=== PATIENT | female | born 2000 | race Caucasian/White ===

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

== ENCOUNTER → 2020-01-17 | Outpatient (CLI) | payer MEDICAID, SELFPAY ==
[2020-01-17 15:43] VITALS: BMI 24.2
[2020-01-17 18:21] LABS: Amphetamine Urine VISTA NEGATIVE (<1000 ng/mL); Barbiturate Urine VISTA NEGATIVE (< 200 ng/mL); Benzodiazepine Urine VISTA NEGATIVE (< 200 ng/mL); Cocaine Urine VISTA NEGATIVE (< 300 ng/mL); Ecstacy Urine VISTA NEGATIVE (< 500 ng/mL); Methadone Urine VISTA NEGATIVE (< 300 ng/mL); PCP Urine VISTA NEGATIVE (< 25 ng/mL); THC Urine VISTA POSITIVE (< 50 ng/mL); Vista UDS pH Range 5
[2020-01-17 21:39] LABS: Chlamydia Trachomatis by PCR POSITIVE (Negative); Neisserai gonorrhoeae by PCR Negative (Negative); Probe Check PASS; Sample Adequacy Control PASS; Specimen Processing Control PASS
== END | disposition home or self-care (01) ==
LOC: LABSPEC 17:24
PROVIDERS: PCP Pediatrics; Visit Provider Obstetrics & Gynecology
DX: O98.819 Other maternal infectious and parasitic diseases complicating pregnancy, unspecified trimester (principal); A74.9 Chlamydial infection, unspecified; Z3A.00 Weeks of gestation of pregnancy not specified
CPT/HCPCS: 80307; 87086; 87491; 87591

== ENCOUNTER 2020-02-10 21:48 | Emergency (ER) | payer MEDICAID, SELFPAY ==
[2020-01-17 15:43] VITALS: BMI 24.2
[2020-02-10 21:50] VITALS: BP 128/78; PULSE 106; RESP 15; TEMP 36.6; O2SAT 98; BMI 26.0
--- NOTE | 2020-02-10 23:53 | ED.VISSUMM ---
- ER Visit Summary Date of Service: 02/10/20 Chief Complaint: Dog bite left jaw. History of Present Illness: The patient is a 19 F currently 18 weeks due to July 12. Her friend's dog bit her in the face about 1 to 2 hours ago. No other injuries. Tetanus shot within the last 5 years. No other complaints. Physical Examination: Well-appearing young female vital signs are stable afebrile. H EENT exam pupils round reactive light. She has a linear superficial laceration along the line of her left jaw. Is probably 3 inches in length. There is also some abrasions at the angle of the jaw. Nothing needs to be sewn but the wound does gape even though superficial it will be well cleaned Dermabond and closed. Neck nontender no lymphadenopathy. Lungs are clear. Heart regular rhythm no murmur. Abdomen soft nontender. Patient is moving all 4 extremities. No edema. Neurologically she is awake and alert. Test Results: None Emergency Department Course and Treatment: Clean left cheek and jaw. Dermabond closure. Discharged. Treatment Plan: Wound care. Disposition: Discharge Impression: Dog bite left jaw with Dermabond repair approximately 3 inches or 7 cm. at 15 weeks This note was generated with [employer] dictation software. It may contain incorrect words, spelling, and punctuation that were not noted in review of the chart prior to signing ED Disposition - Plan for ED Patient: Referrals: Ambika Rae MD [Primary Care Provider] -
--- NOTE | 2020-02-10 23:55 | ED.DEP ---
ED Disposition - Plan for ED Patient: Disposition: Home or Assisted Living Instructions: Dog Bite Referrals: Ambika Rae MD [Primary Care Provider] - As Needed Additional Instructions: Watch for any signs of infection such as redness, pus, fever or swelling. Tylenol for pain. Ice to the area for swelling.
== END 2020-02-11 00:14 | disposition home or self-care (01) ==
LOC: ED 02-11 00:14
PROVIDERS: Emergency Provider Emergency Medicine; PCP Pediatrics
DX: O9A.212 Injury, poisoning and certain other consequences of external causes complicating pregnancy, second trimester (principal); S00.87XA Other superficial bite of other part of head, initial encounter; Z3A.15 15 weeks gestation of pregnancy; W54.0XXA Bitten by dog, initial encounter; Y93.9 Activity, unspecified; Y92.9 Unspecified place or not applicable
CPT/HCPCS: 12014; 99282

== ENCOUNTER → 2020-03-05 07:54 | Outpatient (CLI) | payer MEDICAID, SELFPAY ==
[2020-02-15 11:23] VITALS: BMI 26.0
--- NOTE | 2020-03-05 07:55 | US_ITS ---
STUDY: SECOND AND THIRD TRIMESTER OBSTETRICAL ULTRASOUND REASON FOR EXAM: Female, 19 years old anatomy LMP: October 06, 2019. TECHNIQUE: Transabdominal TECHNICAL QUALITY: Adequate. PRIOR ULTRASOUND: None. FINDINGS: There is a single intrauterine fetus. The fetus is in a transverse lie with the head on the maternal right side. There is demonstrated cardiac activity with a heart rate of 150 bpm. There is a normal amniotic fluid volume. The largest amniotic fluid pocket measures 5.2 cm x 3.4 cm. The amniotic fluid index (AWILDA) is within normal limits. The placenta is anterior in location and is not low lying. There are Grade 0 placental changes. The cervix measures 4 cm in length. The bilateral adnexal regions are normal. BIOMETRY: BPD: 5.02 cm: 21 weeks, 1 days HC: 18.82 cm: 21 weeks, 0 days AC: 16.67 cm: 21 weeks, 4 days FL: 3.34 cm: 20 weeks, 3 days CI: 77.6% FL/BPD: 66.5% FL/HC: FL/AC: 20% HC/AC: 1.13 age by current US: 21 weeks, 0 days. RIGOBERTO by current US: July 16, 2020. Estimated weight: 402 grams, +/- 59 grams, 24 %. Age by LMP: 21 weeks, 4 days. RIGOBERTO by LMP: July 12, 2020. ANATOMY: Gender: Male Cranium: Normal lateral ventricles. Normal choroid plexus. Normal cerebellum. Normal cisterna magna. Normal face, nose and lips. Chest: Normal 4-chamber heart. Abdomen/Pelvis: Normal diaphragm. Normal stomach. Normal abdominal wall. Normal cord insertion. Normal 3 vessel cord. The left renal pelvis measures upper limits of normal at 5 mm. Normal bladder. Spine: Normal cervical spine. Normal thoracic spine. Normal lumbar spine. Normal sacrum. Extremities: Normal bilateral upper extremities. Normal bilateral lower extremities. US/OB Anatomy Scan IMPRESSION: Single live uterine gestation with a mean gestational age of 21 weeks. Electronically Signed: Juanito Hayes, at 10:58 EDT , Service support ,
== END ==
PROVIDERS: PCP Pediatrics; Referring Provider Obstetrics & Gynecology; Visit Provider Obstetrics & Gynecology
DX: Z34.90 Encounter for supervision of normal pregnancy, unspecified, unspecified trimester (principal)
CPT/HCPCS: 76805

== ENCOUNTER → 2020-03-12 | Outpatient (CLI) | payer MEDICAID, SELFPAY ==
[2020-03-12 11:11] VITALS: BMI 26.0
[2020-03-12 16:32] LABS: Amphetamine Urine VISTA NEGATIVE (<1000 ng/mL); Barbiturate Urine VISTA NEGATIVE (< 200 ng/mL); Benzodiazepine Urine VISTA NEGATIVE (< 200 ng/mL); Cocaine Urine VISTA NEGATIVE (< 300 ng/mL); Ecstacy Urine VISTA NEGATIVE (< 500 ng/mL); Methadone Urine VISTA NEGATIVE (< 300 ng/mL); PCP Urine VISTA NEGATIVE (< 25 ng/mL); THC Urine VISTA NEGATIVE (< 50 ng/mL); Vista UDS pH Range 6
[2020-03-12 17:24] LABS: Chlamydia Trachomatis by PCR Negative (Negative); Neisserai gonorrhoeae by PCR Negative (Negative); Probe Check PASS; Sample Adequacy Control PASS; Specimen Processing Control PASS
== END | disposition home or self-care (01) ==
LOC: LABSPEC 14:55
PROVIDERS: PCP Pediatrics; Visit Provider Nurse Practitioner Women's Health
DX: O98.819 Other maternal infectious and parasitic diseases complicating pregnancy, unspecified trimester (principal); A74.9 Chlamydial infection, unspecified; O99.320 Drug use complicating pregnancy, unspecified trimester; F12.90 Cannabis use, unspecified, uncomplicated; Z3A.00 Weeks of gestation of pregnancy not specified
CPT/HCPCS: 80307; 87491; 87591

== ENCOUNTER → 2020-04-11 11:45 | Outpatient (CLI) | payer MEDICAID, SELFPAY ==
[2020-04-11 11:22] VITALS: BMI 26.0
[2020-04-11 12:59] LABS: Absolute Neutrophil Count 7.5 X10^3/uL (2.0-7.7); Basophil# 0.01 X10^3/uL; Basophil% 0.1 % (0-1); Eosinophil# 0.07 X10^3/uL; Eosinophils% 0.7 % (0-5); Hematocrit 32.9 % (37-47); Hemoglobin 10.6 g/dL (12.0-15.0); Lymphocyte % 14.1 % (19-41); Mean Corp Hgb Conc 32.2 g/dL (32-36); Mean Corpuscular Hgb 27.5 pg (27.0-32.0); Mean Corpuscular Volume 85.2 fL (81-99); Mean Platelet Vol. 11.9 fl (6.2-12.0); Monocyte% 9.1 % (0-10); NRBC Flagged by Analyzer 0 % (0-5); Neutrophil # 7.48 X10^3/uL (2.7-7.7); Neutrophil % 75.2 % (47-70); Platelet Count 177 K/mm3 (150-450); RBC Distribution Width CV 13.1 % (11.6-14.6); RBC Distribution Width SD 40.3 fl (35.1-43.9); Red Blood Count 3.86 M/mm3 (4.2-5.4); White Blood Count 9.9 K/mm3 (4.4-11.0)
[2020-04-11 13:58] LABS: Glucose Challenge Gest 1H 50g 117 mg/dL (70-140)
== END ==
PROVIDERS: PCP Pediatrics; Referring Provider Obstetrics & Gynecology; Visit Provider Obstetrics & Gynecology
DX: Z34.92 Encounter for supervision of normal pregnancy, unspecified, second trimester (principal); Z3A.26 26 weeks gestation of pregnancy
CPT/HCPCS: 36415; 82950; 85025

== ENCOUNTER → 2020-06-02 16:19 | Outpatient (CLI) | payer MEDICAID, SELFPAY ==
[2020-06-02 16:15] VITALS: BMI 26.0
[2020-06-02 16:56] LABS: Absolute Lymphocyte Count 1.43 X10^3/uL (0.83-4.51); Absolute Neutrophil Count 6.1 X10^3/uL (2.0-7.7); Basophil# 0.01 X10^3/uL; Basophil% 0.1 % (0-1); Eosinophil# 0.07 X10^3/uL; Eosinophils% 0.8 % (0-5); Hematocrit 35.3 % (37-47); Hemoglobin 11.5 g/dL (12.0-15.0); Lymphocyte # 1.43 X10^3/ul (4.0); Lymphocyte % 17.1 % (19-41); Mean Corp Hgb Conc 32.6 g/dL (32-36); Mean Corpuscular Hgb 28.2 pg (27.0-32.0); Mean Corpuscular Volume 86.5 fL (81-99); Mean Platelet Vol. 11.2 fl (6.2-12.0); Monocyte# 0.69 X10^3/uL; Monocyte% 8.3 % (0-10); NRBC Flagged by Analyzer 0 % (0-5); Neutrophil # 6.08 X10^3/uL (2.7-7.7); Platelet Count 153 K/mm3 (150-450); RBC Distribution Width CV 14.3 % (11.6-14.6); RBC Distribution Width SD 44.8 fl (35.1-43.9); Red Blood Count 4.08 M/mm3 (4.2-5.4); White Blood Count 8.3 K/mm3 (4.4-11.0)
[2020-06-02 17:37] LABS: Amphetamine Urine VISTA NEGATIVE (<1000 ng/mL); Barbiturate Urine VISTA NEGATIVE (< 200 ng/mL); Benzodiazepine Urine VISTA NEGATIVE (< 200 ng/mL); Cocaine Urine VISTA NEGATIVE (< 300 ng/mL); Ecstacy Urine VISTA NEGATIVE (< 500 ng/mL); Methadone Urine VISTA NEGATIVE (< 300 ng/mL); PCP Urine VISTA NEGATIVE (< 25 ng/mL); THC Urine VISTA NEGATIVE (< 50 ng/mL); Vista UDS pH Range 7
== END ==
PROVIDERS: Referring Provider Obstetrics & Gynecology; Visit Provider Obstetrics & Gynecology
DX: O99.320 Drug use complicating pregnancy, unspecified trimester (principal); F12.90 Cannabis use, unspecified, uncomplicated; Z3A.00 Weeks of gestation of pregnancy not specified
CPT/HCPCS: 36415; 80307; 85025

== ENCOUNTER → 2020-06-16 10:27 | Outpatient (CLI) | payer MEDICAID, SELFPAY ==
[2020-06-16 10:02] VITALS: BMI 32.1
[2020-06-16 11:30] LABS: HIV - WCH Non-Reactive (Nonreactive)
[2020-06-16 16:44] LABS: Chlamydia Trachomatis by PCR Negative (Negative); Neisserai gonorrhoeae by PCR Negative (Negative); Probe Check PASS; Sample Adequacy Control PASS; Specimen Processing Control PASS
[2020-06-19 02:24] LABS: Rapid Plasmin Reagin (RPR) NONREACTIVE (NONREACTIVE)
== END ==
PROVIDERS: Referring Provider Obstetrics & Gynecology; Visit Provider Obstetrics & Gynecology
DX: O98.819 Other maternal infectious and parasitic diseases complicating pregnancy, unspecified trimester (principal); Z74.9 Problem related to care provider dependency, unspecified; Z3A.00 Weeks of gestation of pregnancy not specified
CPT/HCPCS: 36415; 86592; 86703; 87081; 87491; 87591

== ENCOUNTER → 2020-06-30 | Outpatient (CLI) | payer MEDICAID, SELFPAY ==
[2020-06-30 15:05] VITALS: BMI 26.0
[2020-06-30 18:37] LABS: Amphetamine Urine VISTA NEGATIVE (<1000 ng/mL); Barbiturate Urine VISTA NEGATIVE (< 200 ng/mL); Benzodiazepine Urine VISTA NEGATIVE (< 200 ng/mL); Cocaine Urine VISTA NEGATIVE (< 300 ng/mL); Ecstacy Urine VISTA NEGATIVE (< 500 ng/mL); Methadone Urine VISTA NEGATIVE (< 300 ng/mL); PCP Urine VISTA NEGATIVE (< 25 ng/mL); THC Urine VISTA NEGATIVE (< 50 ng/mL); Vista UDS pH Range 6
== END | disposition home or self-care (01) ==
LOC: LABSPEC 16:45
PROVIDERS: Referring Provider Obstetrics & Gynecology; Visit Provider Obstetrics & Gynecology
DX: F12.90 Cannabis use, unspecified, uncomplicated (principal)
CPT/HCPCS: 80307

== ENCOUNTER → 2020-07-09 18:03 | Outpatient (CLI) | payer MEDICAID, SELFPAY ==
[2020-07-07 10:01] VITALS: BMI 26.0
== END ==
PROVIDERS: PCP Pediatrics; Referring Provider Obstetrics & Gynecology; Visit Provider Obstetrics & Gynecology
DX: Z11.59 Encounter for screening for other viral diseases (principal)
CPT/HCPCS: 87635; 94799; U0003

== ENCOUNTER 2020-07-19 07:06 | Inpatient (IN) | payer MEDICAID, SELFPAY ==
[2020-07-14 10:21] VITALS: BMI 26.0
[2020-07-19] VITALS (48 sets, daily range): BP systolic 16–171; BP diastolic 66–114; PULSE 93–192; TEMP 36.4–37.6; O2SAT 82–100; BMI 31.4
[2020-07-19] MEDS: Lactated Ringers 1,000 ML 50 ML IV ×3 (08:15→17:39)
[2020-07-19 08:39] LABS: Absolute Lymphocyte Count 1.15 X10^3/uL (0.83-4.51); Absolute Neutrophil Count 6.2 X10^3/uL (2.0-7.7); Basophil# 0.01 X10^3/uL; Basophil% 0.1 % (0-1); Eosinophil# 0.05 X10^3/uL; Eosinophils% 0.6 % (0-5); Hematocrit 33.5 % (37-47); Lymphocyte # 1.15 X10^3/ul (4.0); Mean Corp Hgb Conc 32.8 g/dL (32-36); Mean Corpuscular Hgb 26.9 pg (27.0-32.0); Mean Corpuscular Volume 81.9 fL (81-99); Mean Platelet Vol. 11.9 fl (6.2-12.0); Monocyte# 0.77 X10^3/uL; Monocyte% 9.3 % (0-10); NRBC Flagged by Analyzer 0 % (0-5); Neutrophil # 6.22 X10^3/uL (2.7-7.7); Neutrophil % 75.5 % (47-70); Platelet Count 163 K/mm3 (150-450); RBC Distribution Width CV 13.2 % (11.6-14.6); RBC Distribution Width SD 39.7 fl (35.1-43.9); Red Blood Count 4.09 M/mm3 (4.2-5.4); White Blood Count 8.2 K/mm3 (4.4-11.0)
[2020-07-19] MEDS: Oxytocin 30 units/NS 500 ml 30 UNITS/500 ML IV.SOLN IV (09:09)
[2020-07-19] MEDS: Acetaminophen 500 MG Tablet 1000 MG PO (09:59)
[2020-07-19] MEDS: fentaNYL-bupivacaine (epidural) 100 ML BAG EPIDURAL ×2 (17:00→20:35)
[2020-07-19] MEDS: Ondansetron 4 MG/2 ML Vial IV (19:31)
[2020-07-19] MEDS: Lactated Ringers 500 ML 999 ML IV (20:58)
[2020-07-19] MEDS: proCHLORPERazine 10 MG/2 ML Vial IV (21:25)
[2020-07-19] MEDS: Lactated Ringers 1,000 ML 200 ML IV (22:20)
[2020-07-20] VITALS (25 sets, daily range): BP systolic 107–151; BP diastolic 53–105; PULSE 96–131; RESP 14–18; TEMP 36.6–37.3; O2SAT 97–99
[2020-07-20] MEDS: fentaNYL-bupivacaine (epidural) 100 ML BAG EPIDURAL ×2 (00:59→06:22)
[2020-07-20] MEDS: Ondansetron 4 MG/2 ML Vial IV (02:03)
[2020-07-20] MEDS: Lactated Ringers 1,000 ML 200 ML IV ×2 (02:55→07:25)
[2020-07-20] MEDS: Lactated Ringers 500 ML 999 ML IV (07:24)
--- NOTE | 2020-07-20 07:25 | HP.PCM_ITS ---
- Problem List (1) Chlamydia infection affecting Status: Acute Qualifiers: Comment: treated. JANELL neg on 03/11,neg at 36 weeks and neg RPR and HIV (2) Marijuana use Status: Acute Comment: Negative on 03/11. neg 07/01. plan random tox. (3) Status: Acute Qualifiers: Comment: NIPT low risk, Carrier neg for . ntd screening declined. Anatomy US normal (4) Supervision of high-risk Status: Acute Comment: PRR RIGOBERTO 07/12/20 boy Francoise FOB Van (5) UTI in Status: Acute Qualifiers: Comment: treated. repeat Negative on 01/17 History and Physical Date of Admission: 07/19/20 Intake Vital Signs 07/14/20 Height 4 ft 11 in 07/14/20 Weight: 160 lb 07/14/20 BMI 32.3 07/14/20 BP 122/86 H Intake Visit Reasons: 39WK OB Chief Complaint: est ob Horseback Riding Instructor Required: No Is patient in pain?: No Allergies No Known Allergies Allergy (Verified 07/14/20 10:21) Medications Pnv No.95/Ferrous Fum/Folic AC [ Formula] 1 ea PO DAILY #30 tab 12/17/19 [Rx Confirmed 07/14/20] Last Menstral Period: 10/06/19 Zika: Zika virus screening: Negative : No PFSH PFSH Family History Grandmother Hypertension Grandmother Cancer Social History (Updated 07/14/20 @ 15:[address] Kenia Youssef MD) adopted: No household members: family housing: house current occupational status: unemployed current occupational exposures/hazards: No pets and animals: Yes history of recent travel: No Smoking Status: Former smoker second hand exposure: No alcohol intake: current details: not while substance use type: marijuana seatbelt use: always do you feel safe at home: Yes additional social history: Single Pregancy History 1 Elective abortions Hx Para Spontaneous abortions Hx # Term Pregnancies Ectopic pregnancies Hx # Pregnancies Multiple births # of living children HPI 39WK OB: Details: EDVIN PAIGE is a 20 year old at 41 weeks presents for induction of labor secondary to postdates. OB Visit RIGOBERTO Calculator Estimated Delivery Date Method Current WG Current Estimate 07/12/20 LMP (Certain) 40w 2d Expected Delivery Route/Plan Labor Preferences- labor support person: Van pain management options preferred: epidural cut cord/dad catch: yes : yes PP control planned: undecided discussed possible routes of delivery and associated risks: discussed possible delivery modalities and possible indications for each including R/B/A of , VAVD, and CS. questions answered. special requests: none Specific Issue/Plans flu vaccine: given tdap vaccine: declined rhogam: na LARC form signed: declined movement and labor precautions reviewed. Problem list reviewed and updated with the most current plan of care details and appropriate orders placed. Relevant counseling for the gestational age provided. Continue routine care and follow up unless otherwise noted in visit notes/problem list details Initial Weight: 122 lb Date EGA Weight BP Urine Prot Glucose FHR FuHt Pres Dilation Effaced St Visit Note 01/17/20 14w 5d 122 lb (+0 oz) 116/74 150 SM- no vb cramping 02/15/20 18w 6d 128 lb (+6 lb) 102/78 Negative Negative 145 SM- no vb cramping 03/12/20 22w 4d 137 lb 4 oz (+15 lb 4 oz) 128/66 Negative Negative 151 MH-NO Vb, LOF. Good FM. Reviewed anatomy US boy 04/11/20 26w 6d 145 lb (+23 lb) 120/66 Negative Negative 145 26 SM- no vb lof good fm n oregular ctx cbc gct tdap 05/16/20 31w 6d 156 lb (+34 lb) 112/60 Negative Negative 145 32 Cephalic SM- no vb lof good fm no regular ctx larc signed 06/02/20 34w 2d 158 lb 6 oz (+36 lb 6 oz) 140/82 Negative Negative 155 35 Cephalic SM- no vb lof good fm no regualr ctx 06/16/20 36w 2d 159 lb (+37 lb) 126/82 Negative Negative 150 36 Cephalic SM- no vb lof good fm no regular ctx gbs today 06/23/20 37w 2d 161 lb (+39 lb) 116/82 140 37 Cephalic SM- no vb lof good fm no regular ctx,. 06/30/20 38w 2d 162 lb (+40 lb) 118/84 Negative Negative 135 38 Cephalic 1 SM- no vb lof good fm no regular ctx 07/07/20 39w 2d 162 lb (+40 lb) 120/84 135 39 Cephalic SM- no vb lof good fm no regular ctx 07/14/20 40w 2d 160 lb (+38 lb) 122/86 Negative Negative 130 40 Cephalic 3 70 -1 SM- no vb lof good fm no regular ctx ACOG First Trimester First Trimester: Desire for , Alcohol, Tobacco Cessation, Illicit/Recreational Drug/Substance Use, Intimate Partner Violence, Barriers to care, Unstable Housing, Communication Barriers, Environmental/Work Hazards, Anticipated Course of Care, Toxoplasmosis Precations, Use of Any medications, Sexual activity, Exercise, Dental Care, Sauna/Hot tub use, Seat Belt use, Childbirth classes/Hospital facilities, , Travel, Indications for US and Screening for Aneuploidy Second Trimester Second Trimester: Signs and Symptoms of Labor, Selecting a care provider, Reproductive Life Planning and Depression/Anxiety Third Trimester Third Trimester: Pain Management Plans, Labor support person(s), Immediate Larc, Movement Monitoring and Feeding Yes ; discussed Trial of Labor after Counseling or discussed Circumcision preference Diagnostics Diagnostics Diagnostics Glucose 1 Hr 50 gm 117 mg/dL (70-140) 04/11/20 HIV 1&2 Antibody Non-Reactive (Nonreactive) 06/16/20 Hgb 11.5 g/dL (12.0-15.0) L 06/02/20 Hct 35.3 % (37-47) L 06/02/20 RPR NONREACTIVE (NONREACTIVE) 06/16/20 Details: HIV: Urine Culture: Sequential Screen: NIPT Screen: ROS Const Reports system reviewed and no additional complaints, except as docu Card Reports system reviewed and no additional complaints, except as docu Resp Reports system reviewed and no additional complaints, except as docu GI Reports system reviewed and no additional complaints, except as docu, Reports nausea Reports system reviewed and no additional complaints, except as docu Musc Reports system reviewed and no additional complaints, except as docu Exam Const General: cooperative, healthy appearing, comfortable, anxious HENMT Head: normal to inspection Nose: external nose normal Face and sinus: normal facial exam Neck Neck: normal visual inspection, full ROM, no lymphadenopathy Thyroid: thyroid normal Chest Chest palpation & inspection: normal inspection of the chest Resp Effort & Inspection: normal respiratory effort GI Inspection: normal to inspection Palpation: soft, other (gravid uterus) Other: vertex and appropriate size for gestational age Other: Cervical Exam: Extrem General: pedal edema Results POC Urinalysis 2 Dip (Clinic) Office Urine Glucose Negative Last Edit by Vivien Corey on 07/14/20 10:2 5 Office Urine Protein Negative Last Edit by Vivien Corey on 07/14/20 10:2 5 Assessment & Plan Problems 1. UTI in O23.40 treated. repeat Negative on 01/17 2. Z34.90 NIPT low risk, Carrier neg for . ntd screening declined. Anatomy US normal 3. Marijuana use F12.90 Negative on 03/11. neg 07/01. plan random tox. 4. Chlamydia infection affecting O98.819; A74.9 treated. JANELL neg on 03/11,neg at 36 weeks and neg RPR and HIV 5. Supervision of high-risk O09.90 PRR RIGOBERTO 07/12/20 boy Francoise FOB Van Plan Patient presents IOL, plan management for with pitocin/AROM. Pain management: plans epidural. GBS negative. Management of any complications: none I have reviewed the [facility] and made any clinically relevant updates. Orders Orders: POC Urinalysis 2 Dip (Clinic) Today Coding Level of Care Code Off vis,est,level 3 Diagnoses UTI in O23.40 Z34.90 Marijuana use F12.90 Chlamydia infection affecting O98.819; A74.9 Supervision of high-risk O0990
--- NOTE | 2020-07-20 07:27 | PCM.OPRPT ---
Problem List (1) Chlamydia infection affecting Status: Acute Qualifiers: Comment: treated. JANELL neg on 03/11,neg at 36 weeks and neg RPR and HIV (2) Marijuana use Status: Acute Comment: Negative on 03/11. neg 07/01. plan random tox. (3) Status: Acute Qualifiers: Comment: NIPT low risk, Carrier neg for . ntd screening declined. Anatomy US normal (4) Supervision of high-risk Status: Acute Comment: PRR RIGOBERTO 07/12/20 boy Francoise FOB Van (5) UTI in Status: Acute Qualifiers: Comment: treated. repeat Negative on 01/17 (6) Atony of uterus without hemorrhage Status: Acute Vaginal Delivery Maternal Presentation: Medically Indicated Induction iol postdates Method of Induction: Pitocin Amniotic Membrane Rupture Type: Artificial Amniotic Fluid Description: Clear Final RIGOBERTO: 07/12/20 Gestational age: 41 Weeks and 2 Days Date of Procedure: 07/20/20 Pre-Operative Diagnosis: iol postdates Post-Operative Diagnosis: same Surgery/ Procedure Performed: Spontaneous Vaginal Delivery Type of Anesthesia: Epidural Description of Procedure: Patient began pushing and delivered the head in the [PATRICIA] presentation. The head was delivered atraumatically [and a loose nuchal cord ?1 was identified and easily reduced over the 's head]. The anterior and posterior shoulders delivered without complication followed by the rest of the infant and the infant was placed on the maternal abdomen. Delayed cord clamping was employed for approximately 60 seconds. Cord was clamped and cut and gentle traction was applied to the cord and the placenta delivered spontaneously immediately following it was noted to be intact with three-vessel cord. The perineum and vagina were inspected and noted to have a second-degree perineal laceration that was repaired in the usual fashion with 3-0 Vicryl Rapide. Some uterine atony was initially noted and treated with Methergine, Hemabate, and bimanual massage and Pitocin. Discussed with nursing watching EBL over the next 24 hours and if over thousand cc total recommend follow-up CBC.. EBL was 700 cc. Patient and infant tolerated delivery well. Placenta Disposition: [facility] Cord Vessel Description: 3 Vessels Cord Entanglement: Around neck x 1, loose Estimated Blood Loss: 700 A gender: Male Episiotomy Description: None Laceration: Perineal Extension/lac, 2nd degree Medications given after delivery: IV Pitocin Complications: None Multi Select Codes - Urinary/Genital Urinary/Genital CPT Codes: 36153 Vaginal Delivery+ Care([facility])
[2020-07-20] MEDS: Oxytocin 30 units/NS 500 ml 30 UNITS/500 ML IV.SOLN 334 UNITS IV (08:55)
[2020-07-20] MEDS: Methylergonovine 0.2 MG/ML Ampul IM (08:57)
[2020-07-20] MEDS: Carboprost Tromethamine 250 MCG/ML Ampul IM (09:05)
[2020-07-20] MEDS: Naproxen 250 MG Tablet 500 MG PO (20:32)
[2020-07-20] MEDS: Acetaminophen 500 MG Tablet 1000 MG PO (23:49)
[2020-07-21 04:17] VITALS: BP 99/56; PULSE 99; RESP 14; TEMP 36
[2020-07-21 09:00] VITALS: BP 116/73; PULSE 99; RESP 16; TEMP 36.4
[2020-07-21 09:09] VITALS: BP 116/73; PULSE 99
--- NOTE | 2020-07-21 09:22 | PN.OBGYN_ITS ---
Subjective: Patient doing well without complaints. Tolerating PO. Ambulating and voiding without difficulty. Passing gas. Feeding without difficulty. Denies chest pain, shortness of breath, calf pain/swelling, fevers, chills, lightheadedness. - Physical Exam Vitals/I&O's: Vital Signs Temp Pulse Resp BP Pulse Ox 96.8 F L 99 14 116/73 99 07/21/20 04:17 07/21/20 09:09 07/21/20 04:17 07/21/20 09:09 07/20/20 07:50 Oxygen Delivery Method Room Air Weight: 161 lb Body Mass Index (BMI) 31.4 Intake and Output for Last 24 Hours 07/19/20 07/20/20 07/21/20 23:59 23:59 23:59 Intake Total 2.26 / 2021. 3121.94 / 3121.94 Output Total 200 / 200 450 / 450 Balance 1822.26 / 1822.26 2671.94 / 2671.94 General: Alert, Oriented x3 Current Medications Acetaminophen (Tylenol) 1,000 mg PO Q8H PRN PRN PRN Reason: Pain Score 1-310 Last Admin: 07/20/20 23:49 Dose: 1,000 mg Documented by: Bisacodyl (Dulcolax) 10 mg RECTAL UD PRN PRN Reason: If no BM Dibucaine (Dibucaine) 1 applic TOPICAL TID PRN PRN; Protocol PRN Reason: Discomfort Hydrocortisone (Hytone) 1 applic TOPICAL TID PRN PRN; Protocol PRN Reason: Discomfort Methylergonovine Maleate (Methergine) 0.2 mg IM X1 PRN PRN Reason: Excess bleeding/uterine atony Last Admin: 07/20/20 08:57 Dose: 0.2 mg Documented by: Naproxen (Naprosyn) 500 mg PO Q8H PRN PRN PRN Reason: Pain Score 1-3/10 Last Admin: 07/20/20 20:32 Dose: 500 mg Documented by: Ondansetron HCl (Zofran) 4 mg IV Q4H PRN PRN PRN Reason: Nausea Oxycodone HCl (Oxyir) 5 - 10 mg PO Q4H PRN PRN PRN Reason: Pain Score 4-10/10 Senna/Docusate Sodium (Senokot-S, Cris-Colace) 1 - 2 tablet PO DAILY PRN PRN PRN Reason: Constipation Simethicone (Mylicon) 80 mg PO PCHS PRN PRN Reason: Indigestion/Stomach pain Sodium Chloride () 5 - 15 ml IV UD PRN PRN Reason: SALINE FLUSH Medical Necessity - Tobacco Use Smoking Status: Former smoker Assessment/Plan All Active Problems (Last Reviewed 07/14/20 @ 10:21 by Vivien Corey) Supervision of high-risk (Acute) Chlamydia infection affecting (Acute) Marijuana use (Acute) (Acute) UTI in (Acute) Immune to varicella (Resolved) Iron (Fe) deficiency anemia (Resolved) Tetanus, diphtheria, and acellular pertussis (Tdap) vaccination declined (Ruled- out) s/p PPD # 1 1. routine post delivery care 2. breast feeding- support given 3. rh positive 4. rubella immune
--- NOTE | 2020-07-21 09:23 | DCINST_ITS ---
Discharge Diet: No Restrictions Discharge Activity: Return to Normal Activity, May not drive while taking narcotic pain medications., May Shower May resume sexual activity in: 4-6 weeks Call your doctor if your incision/area has: Continuous Slow Oozing, Sudden Increased Bleeding, Increased Pain/ Swelling, Increased Redness, Foul Smelling Discharge Additional Instructions: If you experience any of the following, contact your healthcare provider. * Bleeding that soaks a pad every hour for 2 hours * Fever 100.4 or higher * Unrelieved incision or abdominal pain * Swelling, redness, discharge or bleeding from your incision or episiotomy site * Your incision begins to separate * Problems urinating (including inability to urinate or burning while urinating). * Visual changes * Severe headache * Flu-like symptoms * Pain or redness in one of both of your breasts * Pain, warmth, tenderness or swelling in your legs, especially the calf area * Frequent nausea and vomiting * Symptoms of depression or anxiety If you experience any of the following, call 911 or go to the nearest Emergency Room. * Chest pain * Problems breathing * Seizure activity * Partial or complete paralysis of a body part, slurred speech, weakness or drooping of the face, or a sudden inability to walk or hold your balance Allergies/Adverse Reactions: Allergies No Known Allergies Allergy (Verified 07/14/20 10:21) Medications to take at Discharge Pnv No.95/Ferrous Fum/Folic AC [ Formula] 1 ea PO DAILY 07/19/20 Please Follow Up With: Kenia oYussef MD - [phone] When: Call to make an appointment with your doctor in 6 weeks. If you had elevated Blood pressure or 4th degree laceration you will need to be seen in 2 weeks. Primary Care Physician: Care Physician,No Primary [Primary Care Provider] - Test Results: Test results from this visit will be discussed in further detail at your follow- up appointment, if applicable.
--- NOTE | 2020-07-21 09:23 | PCM.DCVAG ---
Discharge Diet: No Restrictions Discharge Activity: Return to Normal Activity, May not drive while taking narcotic pain medications., May Shower May resume sexual activity in: 4-6 weeks Call your doctor if your incision/area has: Continuous Slow Oozing, Sudden Increased Bleeding, Increased Pain/ Swelling, Increased Redness, Foul Smelling Discharge Additional Instructions: If you experience any of the following, contact your healthcare provider. Bleeding that soaks a pad every hour for 2 hours Fever 100.4 or higher Unrelieved incision or abdominal pain Swelling, redness, discharge or bleeding from your incision or episiotomy site Your incision begins to separate Problems urinating (including inability to urinate or burning while urinating). Visual changes Severe headache Flu-like symptoms Pain or redness in one of both of your breasts Pain, warmth, tenderness or swelling in your legs, especially the calf area Frequent nausea and vomiting Symptoms of depression or anxiety If you experience any of the following, call 911 or go to the nearest Emergency Room. Chest pain Problems breathing Seizure activity Partial or complete paralysis of a body part, slurred speech, weakness or drooping of the face, or a sudden inability to walk or hold your balance Allergies/Adverse Reactions: Allergies No Known Allergies Allergy (Verified 07/14/20 10:21) Medications to take at Discharge Pnv No.95/Ferrous Fum/Folic AC [ Formula] 1 ea PO DAILY 07/19/20 Please Follow Up With: Kenia Youssef MD - [phone] When: Call to make an appointment with your doctor in 6 weeks. If you had elevated Blood pressure or 4th degree laceration you will need to be seen in 2 weeks. Primary Care Physician: Care Physician,No Primary [Primary Care Provider] - Test Results: Test results from this visit will be discussed in further detail at your follow-up appointment, if applicable.
--- NOTE | 2020-07-21 11:15 | CASEMGMT ---
Social Work Assessment Labor and Delivery Unit Date of Referral: 07/21/2020 Date of Intervention: 07/21/2020 Time of Intervention: 11:15a Reason for Referral: History of THC early on in . History obtained from: MEDICAL RECORD, MOTHER OF BABY (MOB) Household composition: MOB and MOB reports HILARY Carr will be staying for a few weeks. Educational Status: High School Graduate Financial Status: Limited Infant Supplies: MOB reports has all needs met for baby boy, Sourav Carr including car seat, crib, diapers, wipes, clothes Childcare/Caregiver(s): MOB reports will be main caregiver. MOB reports good support from FOB, FOB?s family and MOB?s family Transportation: MOB denies any issues with transportation Programs/Agencies Involved: [facility], [facility] Children Services/Legal Issues: MOB denies any history of children services. MOB denies any legal issues Behavioral Health Issues: Mental Health History: MOB denies any history of mental health. Substance Use History: MOB admits to use of marijuana early in . MOB denies any current use. Drug screens on 03/11 and 07/01 were negative. MOB denies any plan to return to use of marijuana. MOB understands meconium for baby to be tested and report to Children Services will be completed. Depression/Shaken Baby/Safe Sleeping Reviewed and resources provided. ASSESSMENT: Met with MOB and FOB in room. HILARY Carr asleep on the couch during assessment. MOB reports she and JANICE are not currently involved in a romantic relationship. MOB reports she and FOB have been ?off and on? for 1 year. MOB reports Van will return home with MOB and baby upon discharge for a few weeks. MOB denies any history of mental health. MOB admits to marijuana use early in and denies any plan to return to use. MOB bonding well with baby. MOB reports is currently , but baby is a ?lazy? feed. MOB reports may do a combination of breast and bottle feed breast milk. MOB states all needs are met for baby. Updated nursing on this worker?s assessment. Will complete report to Children Services do to use of THC during . PLAN: Home with resources provided. Report to be completed to [facility] regarding use of THC during . No other services requested or indicated. -Maria Ines Nguyễn, COLLECTION CORRESPONDENT, CLIENT SERVICE REPRESENTATIVE
[2020-07-21 14:30] VITALS: BP 113/57; PULSE 102; RESP 16; TEMP 36.7
[2020-07-21 16:01] VITALS: BP 113/57; PULSE 102
--- NOTE | 2020-07-22 13:00 | CASEMGMT ---
SOCIAL WORK Report made to [place] with [facility] Services regarding use of THC early in . Informed baby boy, Jinesis urine was negative and this worker will update once meconium results received. Sis Nguyễn, SLEEVE SEWER, STRIP CATCHER
== END 2020-07-21 16:15 | disposition home or self-care (01) | DRG 560 ==
PROVIDERS: Admitting Provider Obstetrics & Gynecology; Referring Provider Obstetrics & Gynecology; Visit Provider Obstetrics & Gynecology
DX: O48.0 Post-term pregnancy (principal); O70.1 Second degree perineal laceration during delivery; O69.81X0 Labor and delivery complicated by cord around neck, without compression, not applicable or unspecified; O62.2 Other uterine inertia; O98.82 Other maternal infectious and parasitic diseases complicating childbirth; A74.9 Chlamydial infection, unspecified; O99.324 Drug use complicating childbirth; F12.90 Cannabis use, unspecified, uncomplicated; O99.02 Anemia complicating childbirth; D50.9 Iron deficiency anemia, unspecified; O23.43 Unspecified infection of urinary tract in pregnancy, third trimester; Z87.891 Personal history of nicotine dependence; Z3A.41 41 weeks gestation of pregnancy; Z37.0 Single live birth
CPT/HCPCS: 59025; 59050; 85025; 86850; 86900; 86901; 99218; J7120; G0378; J2405

== ENCOUNTER 2020-07-25 15:56 | Emergency (ER) | payer MEDICAID, SELFPAY ==
[2020-07-19 07:48] VITALS: BMI 31.4
[2020-07-25 15:58] VITALS: BP 139/94; PULSE 108; RESP 18; TEMP 36.4; O2SAT 98; BMI 29.0
--- NOTE | 2020-07-25 16:14 | VDLE_ITS ---
Reason For Study: PAIN RIGHT GSV is normal. CFV is compressible, spontaneous, phasic, competent and demonstrates normal augmentation. FV is compressible, spontaneous, phasic, competent and demonstrates normal augmentation. POP V is compressible, spontaneous, phasic, competent and demonstrates normal augmentation. T/P Trunk is compressible. PTV is compressible. RT PerV is compressible. Procedure Exam performed portable in ED. A preliminary report was called and/or faxed to ED. Interpretation Summary Deep veins of the right lower extremity are patent and compressible segmentally. There is no evidence of right lower extremity deep vein thrombosis. Valvular competence appears intact within the proximal deep venous system on the right . The right great saphenous vein appears patent and compressible segmentally. Ordering Physician: Ja Bhagat Performed By: Heike Rodriguez, RAJ, RVT
--- NOTE | 2020-07-25 16:16 | ED.DCSUM_ITS ---
- ER Visit Summary Date of Service: 07/25/20 Chief Complaint: Right leg swelling History of Present Illness: The patient is a 20 F who presents with right leg pain and swelling that has been getting worse over the past 3 days. Patient had recent vaginal delivery 5 days ago. Patient states her pain and swelling started when she got home. Patient states she has a numb sensation in her right leg. Patient states her swelling is improved with rest. Patient denies any fevers or chills. Patient states she feels slightly short of breath at times. Patient denies any chest pain. Patient denies any nausea or vomiting patient does admit to a mild headache. Patient denies any abdominal pain. Physical Examination: Vital signs are stable. Patient is afebrile. Patient is in no acute distress. Oral mucosa is pink and moist. Neck is supple. Trachea is midline. There is no JVD noted. Heart was regular rate and rhythm. Lungs are clear and equal bilaterally. Abdomen is soft. Bowel sounds are normal. There is no tenderness. There is no rebound or guarding noted. Skin is warm dry. Cranial nerves II through XII are intact. There are no focal motor or sensory deficits noted. Extremities are intact. There is no calf tenderness. There is 2+ edema of the right lower extremity. It is nonpitting. Epidural site is minimally tender. There is no erythema. There is no induration. There is no warmth. There is no sign of any infection. There is good range of motion of the lumbar spine. Test Results: CBC shows a hemoglobin of 8.0 and hematocrit 25.7. Comprehensive metabolic profile was within normal limits. PT with INR and PTT were within normal limits. Urinalysis showed leukocyte esterase of 500 with greater than 100 white blood cells and 2+ bacteria. Venous duplex of the right lower extremity was obtained. There is no evidence of DVT. Emergency Department Course and Treatment: Patient is feeling better on reevaluation. Case was discussed with Dr. Morena Rollins who was covering for Dr. Kenia Youssef. She stated that the anemia may be delusional from the . She recommended to have the patient monitor her blood pressure and will have the patient follow-up in 3 to 5 days. Patient was given a prescription for Keflex. Patient was given her first dose here. Patient understood and was agreeable with the plan. All questions were answered. Disposition: Discharge home Impression: 1. Urinary tract infection 2. Right leg edema 3. Anemia This note was generated with [employer] dictation software. It may contain incorrect words, spelling, and punctuation that were not noted in review of the chart prior to signing ED Disposition - Plan for ED Patient: Disposition: Home or Assisted Living Diagnosis: Urinary tract infection, Edema of right lower leg, Anemia Instructions: ED CYSTITIS Female Adult, ED Peripheral Edema, Unilateral Prescriptions: Cephalexin [Keflex] 500 mg PO Q6 #12 cap Prescription Printed Referrals: Kenia Youssef MD [STAFF PHYSICIAN] - 3-5 Days
[2020-07-25 16:38] LABS: Mucous, Urine 0 SEEN /hpf (<or=2+)
[2020-07-25 16:48] LABS: Color, Urine Yellow (Yellow); Glucose, Dipstick Normal (Normal); Ketone-Dipstick Negative (Negative); Leukocyte Esterase-Dipstick 500 /ul (Negative); Nitrite-Dipstick Negative (Negative); Occult Blood-Urine 250 /ul (Negative); Protein-Dipstick 30 mg/dl (Negative); Urine Bilirubin Dipstick Negative (Negative); Urine Clarity Cloudy (Clear); Urine Urobilinogen 1 mg/dl (Normal)
[2020-07-25 16:51] LABS: Absolute Lymphocyte Count 1.13 X10^3/uL (0.83-4.51); Absolute Neutrophil Count 8.6 X10^3/uL (2.0-7.7); Basophil# 0.03 X10^3/uL; Basophil% 0.3 % (0-1); Eosinophil# 0.15 X10^3/uL; Eosinophils% 1.4 % (0-5); Hematocrit 25.7 % (37-47); Lymphocyte # 1.13 X10^3/ul (4.0); Lymphocyte % 10.3 % (19-41); Mean Corp Hgb Conc 31.1 g/dL (32-36); Mean Corpuscular Volume 83.4 fL (81-99); Mean Platelet Vol. 10.9 fl (6.2-12.0); Monocyte# 0.81 X10^3/uL; Monocyte% 7.4 % (0-10); NRBC Flagged by Analyzer 0.5 % (0-5); Neutrophil # 8.61 X10^3/uL (2.7-7.7); Neutrophil % 78.1 % (47-70); Platelet Count 290 K/mm3 (150-450); RBC Distribution Width CV 13.5 % (11.6-14.6); RBC Distribution Width SD 40.4 fl (35.1-43.9); Red Blood Count 3.08 M/mm3 (4.2-5.4)
[2020-07-25 16:55] LABS: Squamous Epithelial Cells - UA 0-5 SEEN /hpf (5-10)
[2020-07-25 17:04] LABS: ALB/GLOB Ratio 0.7 RATIO (0.9-2.4); AST(SGOT) 20 U/L (15-37); Alanine Aminotransfer ALT/SGPT 35 U/L (13-56); Albumin, Serum 2.4 g/dL (3.2-5.0); Alkaline Phosphatase 157 U/L (45-117); Anion Gap 5 (5-15); BUN 9 mg/dL (7-18); BUN/Creat Ratio 15.2 RATIO (10-20); Calcium,Total 8.8 mg/dL (8.5-10.1); Chloride 110 mmol/L (98-107); Creatinine, Serum 0.59 mg/dL (0.55-1.02); EST Glomerular Filtration Rate 137 mL/min (>60); Est Glom Filt Rate - Afr Amer 166 mL/min (>60); Estimated Creatinine Clearance 109.25 ml/min; Globulin 3.6 g/dL (2.2-4.2); Glucose 76 mg/dL (74-106); Potassium 3.9 mmol/L (3.5-5.1); Red Blood Cells-Urine 10-25 SEEN /hpf (0-5); Sodium Level 143 mmol/L (136-145)
[2020-07-25 17:05] LABS: Bacteria 2+ /hpf (None Seen)
[2020-07-25 17:07] LABS: White Blood Cells >100 SEEN /hpf (0-5)
[2020-07-25 17:08] LABS: Partial Thromboplast Time 34.6 Seconds (24.1-36.2)
[2020-07-25 18:51] VITALS: BP 135/99; PULSE 91; RESP 18; O2SAT 99
[2020-07-25] MEDS: Cephalexin 250 MG Capsule 500 MG PO (18:51)
== END 2020-07-25 18:52 | disposition home or self-care (01) ==
PROVIDERS: Emergency Provider Emergency Medicine
DX: O86.20 Urinary tract infection following delivery, unspecified (principal); O90.81 Anemia of the puerperium; D64.9 Anemia, unspecified; O90.89 Other complications of the puerperium, not elsewhere classified; R60.0 Localized edema; R20.0 Anesthesia of skin
CPT/HCPCS: 80053; 81001; 85025; 85610; 85730; 93971; 99284

== ENCOUNTER 2020-10-03 19:01 | Emergency (ER) | payer MEDICAID, SELFPAY ==
[2020-09-01 09:12] VITALS: BMI 29.0
[2020-10-03 19:01] VITALS: BP 138/88; PULSE 80; RESP 18; TEMP 36.8; O2SAT 100; BMI 26.2
--- NOTE | 2020-10-03 20:28 | ED.VIS.GEN ---
History of Present Illness Chief Complaint: Cough Narrative: Patient presenting secondary to loss of taste and smell. Patient has been asymptomatic otherwise except for having one episode of nausea and vomiting yesterday. 5 days ago she lost her sense of taste and smell. No other associated symptoms such as cough shortness of breath diarrhea. She denies any sick contacts. She is otherwise healthy. Past Medical History - Allergies and Home Meds Allergies/Adverse Reactions: Allergies No Known Allergies Allergy (Verified 09/01/20 09:12) Primary Care Physician: Care Physician,No Primary [Primary Care Provider] - Prior records reviewed: Yes Past Medical History: None Surgical History: noncontributory Smoking Status: Former smoker Alcohol: None Drugs: None Review of Systems All systems negative except as indicated General: Denies: Chills, Fever, Sweats Eyes: Denies: Visual changes - bilaterally, Diplopia ENT: Reports: - - Loss of taste and smell with mild rhinorrhea Cardiovascular: Denies: Chest pain, Palpitations Respiratory: Denies: Dyspnea, Cough, Dyspnea on exertion Gastrointestinal: Reports: Nausea, Vomiting. Denies: Abdominal pain, Diarrhea, Melena, Hematochezia Genitourinary: Denies: Dysuria, Hematuria, Frequency Musculoskeletal: Denies: Back pain, Extremity Pain Skin: Denies: Rash, Wounds Neurological: Denies: Headache, Weakness, Numbness Physical Exam Vital Signs/Narrative: Vital Signs Temp Pulse Resp BP Pulse Ox 10/03/20 19:01 98.3 F 80 18 138/88 H 100 Inital Vital Signs reviewed: Yes General: Well nourished, Well developed, No Acute Distress Head: Normocephalic, Atraumatic Eyes: Perrl, EOMI ENT: Moist mucous membranes, No rhinorrhea Neck: Supple, Nontender Cardiovascular: Regular rate, Regular rhythm, No murmurs Respiratory: No distress, CTA bilaterally, Chest nontender Abdomen: Soft, Nontender, Nondistended, Normal bowel sounds Back: Nontender, Normal Inspection Extremities: Nontender, No edema Skin: Normal color, No rash Neurological: Alert, Oriented x3, Cranial nerves II-XII grossly intact, Normal Strength, Normal Sensation Psychological: Normal affect, Normal Mood Diagnostic/Tx/Re-eval - Medical Decision Making Patient presenting with an isolated loss of taste and smell. She is otherwise nontoxic with stable vitals. Coronavirus testing will be obtained, patient was recommended to quarantine until she receives results. ED Disposition - Plan for ED Patient: Disposition: Home or Assisted Living Diagnosis: Anosmia, Loss of taste Instructions: ED Upper Resp Infec No Abx Tx Referrals: Pooja Hughes [NON-STAFF] - 1 Week if not improving
[2020-10-03 20:47] VITALS: BP 118/69; PULSE 75; RESP 15; O2SAT 99
--- NOTE | 2020-10-03 23:08 | ED.RN ---
DARIEN IN LAB CALLED AND ACCIDENTLY RAN THE COVID TEST IN HOUSE AND PT RESULTS IS POSITIVE.
== END 2020-10-03 20:52 | disposition home or self-care (01) ==
LOC: ED 20:46
PROVIDERS: Emergency Provider Emergency Medicine
DX: U07.1 COVID-19 (principal); R43.0 Anosmia; R43.9 Unspecified disturbances of smell and taste; Z87.891 Personal history of nicotine dependence
CPT/HCPCS: 87635; 99282; U0002

== ENCOUNTER 2024-03-09 10:00 | Outpatient (CLI) | payer MEDICAID, SELFPAY ==
[2024-03-09 10:20] VITALS: BP 124/72; PULSE 69; RESP 16; TEMP 36.2
[2024-03-09] MEDS: Dextrose 5%-Lactated Ringers 1,000 ML 999 ML IV (10:32)
[2024-03-09] MEDS: Ondansetron 4 MG/2 ML Vial IV (10:34)
[2024-03-09 11:46] VITALS: BP 111/56; PULSE 76; RESP 16
[2024-03-09 12:05] LABS: Amphetamine Urine VISTA NEGATIVE (<1000 ng/mL); Barbiturate Urine VISTA NEGATIVE (< 200 ng/mL); Benzodiazepine Urine VISTA NEGATIVE (< 200 ng/mL); Cocaine Urine VISTA NEGATIVE (< 300 ng/mL); Ecstacy Urine VISTA NEGATIVE (< 500 ng/mL); Methadone Urine VISTA NEGATIVE (< 300 ng/mL); PCP Urine VISTA NEGATIVE (< 25 ng/mL); THC Urine VISTA POSITIVE (< 50 ng/mL); Vista UDS pH Range 5
[2024-03-12 00:06] LABS: Chlamydia By Nucleic Acid AMP Negative (Negative); Gonococcus By Nucleic Acid AMP Negative (Negative)
[2024-03-15 15:59] LABS: HPV Reflexed? NOT INDICATED
== END 2024-03-09 10:01 | disposition home or self-care (01) ==
PROVIDERS: Referring Provider Registered Nurse; Visit Provider Registered Nurse
DX: O99.280 Endocrine, nutritional and metabolic diseases complicating pregnancy, unspecified trimester (principal); E86.0 Dehydration; Z3A.00 Weeks of gestation of pregnancy not specified; Z34.90 Encounter for supervision of normal pregnancy, unspecified, unspecified trimester; O09.90 Supervision of high risk pregnancy, unspecified, unspecified trimester; O99.320 Drug use complicating pregnancy, unspecified trimester; F12.99 Cannabis use, unspecified with unspecified cannabis-induced disorder
CPT/HCPCS: 96374; 96361; 80307; 87086; 87491; 87591; 88175; A4216; G0145; J2405

== ENCOUNTER → 2024-03-22 | Outpatient (CLI) | payer MEDICAID, SELFPAY ==
[2024-03-22 15:19] LABS: Absolute Neutrophil Count 5.9 X10^3/uL (2.0-7.7); Basophil# 0.02 X10^3/uL; Basophil% 0.3 % (0-1); Eosinophil# 0.08 X10^3/uL; Hematocrit 36.9 % (37-47); Hemoglobin 12.4 g/dL (12.0-15.0); Lymphocyte % 17.7 % (19-41); Mean Corp Hgb Conc 33.6 g/dL (32-36); Mean Corpuscular Hgb 28.6 pg (27.0-32.0); Mean Corpuscular Volume 85.2 fL (81-99); Mean Platelet Vol. 12.6 fl (6.2-12.0); Monocyte# 0.55 X10^3/uL; Monocyte% 6.9 % (0-10); NRBC Flagged by Analyzer 0 % (0-5); Neutrophil # 5.86 X10^3/uL (2.7-7.7); Neutrophil % 73.8 % (47-70); Platelet Count 170 K/mm3 (150-450); RBC Distribution Width CV 13.9 % (11.6-14.6); RBC Distribution Width SD 43.8 fl (35.1-43.9); Red Blood Count 4.33 M/mm3 (4.2-5.4); White Blood Count 7.9 K/mm3 (4.4-11.0)
[2024-03-22 16:19] LABS: HIV - WCH Non-Reactive (Nonreactive); Hepatitis B Surface Antigen Non-Reactive (Nonreactive); Hepatitis C Antibody Non-Reactive (Nonreactive); Rubella IgG Reactive (Nonreactive); Syphilis Antibodies Non-reactive
[2024-03-24 05:07] LABS: V-Zoster IgG (Immunity) 555 index (Immune >165)
== END | disposition home or self-care (01) ==
LOC: PAVLAB 14:48
PROVIDERS: Referring Provider Registered Nurse; Visit Provider Registered Nurse
DX: Z34.81 Encounter for supervision of other normal pregnancy, first trimester (principal)
CPT/HCPCS: 36415; 85025; 86703; 86762; 86780; 86787; 86803; 86850; 86900; 86901; 87340

== ENCOUNTER 2024-04-05 12:01 | Emergency (ER) | payer MEDICAID, SELFPAY ==
[2024-04-05 12:02] VITALS: BP 118/80; PULSE 82; RESP 14; TEMP 35.7; O2SAT 100
[2024-04-05 12:40] LABS: Bedside Glucose 84 mg/dL (74-106)
--- NOTE | 2024-04-05 12:43 | CT_ITS ---
STUDY: CT BRAIN WITHOUT CONTRAST REASON FOR EXAM: Female, 23 years old. Syncope, head injury (shield abd - 12 wks preg) RADIATION DOSAGE (If Supplied By Facility): CTDIvol = ( 47.06 ) mGy, DLP = ( 872.68 ) mGycm TECHNIQUE: Transaxial CT imaging of the brain was performed without administration of intravenous contrast material. Individualized dose optimization techniques were used for this CT. COMPARISON: No relevant priors. FINDINGS: Normal soft tissue structures. Normal calvarium. Normal size ventricles and extra-axial spaces for the patient''s age. Normal white matter tracts of the cerebral hemispheres. Normal basal ganglia and thalami. Normal brainstem. Normal cerebellum. There is no intracranial hemorrhage. There are no findings of an acute ischemic infarction. Minimal mucosal thickening at the base of the left maxillary sinus. CT/Brain/Head without Contrast IMPRESSION: Normal unenhanced CT scan of the brain. Electronically Signed: Juanito Hayes MD at 13:40 EDT ,
--- NOTE | 2024-04-05 12:45 | EX.ED.DYSGE1 ---
HPI History of Present Illness Chief Complaint: Syncope Informant: patient Onset/Context/Timing Onset: Today Narrative Narrative: Patient presents via EMS secondary to syncopal episode. She is currently 12 weeks . She states that she had a very brief prodromal symptom of lightheadedness and feeling warm and then woke up on the floor. She did report a fall to her right and hit her head on a shelf. She does have a mild headache. BGT was reportedly 62 for EMS. They did give her some oral glucose. She has some mild abdominal cramping. PFSH PFSH Medical History Hx of chlamydia infection Home Medications PNV 153-FA 400 mcg-om3 35 mg-dha 25 mg-epa 5 mg-fish oil chew tablet tab PO DAILY 03/07/24 [History Last Taken Unknown] valacyclovir 500 mg tablet (Valtrex) 500 mg PO DAILY 03/07/24 [History Last Taken Unknown] ondansetron 4 mg disintegrating tablet 4 mg PO Q6H PRN nausea and vomiting #30 tabs 03/27/24 [Rx Last Taken Unknown] Allergy/AdvReac Type Severity Reaction Status Date / Time No Known Allergies Allergy Verified 04/05/24 12:02 Family History Grandmother Hypertension Grandmother Cancer Surgical History Hardy teeth extracted Social History adopted: No household members: family and children housing: house number of children: 1 current occupational status: employed current occupation: [employer] current occupational exposures/hazards: No pets and animals: No history of recent travel: No sexually active: Yes Smoking Status: Never smoker second hand exposure: No alcohol intake: current details: not while substance use type: marijuana well-balanced diet: about half the time caffeine: No eating out: 1-3 times/week during the past year weight has: remained stable what type of physical activity do you participate in: none thad/orthodoxy: None seatbelt use: always do you feel safe at home: Yes additional social history: Single Significant Other- Jordan ROS ROS ED Constitutional Constitutional ED: Denies chills or fever(s) Eyes Eyes: Denies discharge from eye(s) ENT ENT ED: Denies discharge from eye(s), rhinorrhea or sore throat Cardiovascular Cardiovascular: Denies chest pain or palpitations Respiratory/Chest Respiratory/Chest: Denies cough or dyspnea Gastrointestinal Gastrointestinal: Reports abdominal pain; Denies nausea or vomiting Genitourinary Genitourinary ED: Denies difficulty urinating or dysuria Musculoskeletal Musculoskeletal: Denies back pain or extremity pain Integumentary Denies Abrasions or rash Neurologic Neurologic: Reports headache(s); Denies weakness Psychiatric Psychiatric: Denies anxiety or depression Allergic/Immunologic Allergic/Immunologic ED: Denies lip swelling or urticaria EXAM Physical Exam Const Vital Signs: 04/05/24 12:02 04/05/24 13:16 04/05/24 14:06 Temperature 96.3 F L 98.0 F Temperature Source Temporal Oral Pulse Rate 82 74 Respiratory Rate 14 15 Respiratory Effort Normal Respiratory Pattern Normal Blood Pressure 118/80 127/66 H Blood Pressure Mean 92 86 Pulse Ox 100 98 Oxygen Delivery Method Room Air Room Air Positive well nourished and well developed General Appearance ED: well developed HEENT Reports moist mucous membranes Eyes EOMs intact bilaterally Chest Wall inspection of chest normal and palpation of chest normal Resp normal respiratory effort and clear to auscultation bilaterally Cardio regular rate and regular rhythm GI non-tender Palpation: soft Extremity normal to inspection Neuro oriented x3 and no sensory deficits noted Motor Exam: strength 5/5 throughout Psych mental status grossly normal Skin no rashes or lesions noted MDM MDM MDM Narrative Medical decision making narrative: Patient was on research and development scientist. EKG obtained to evaluate for cardiac arrhythmia/ischemia. IV line established. Labwork obtained to evaluate for leukocytosis, anemia, and electrolyte derangement. CT scan of the head will be obtained given her syncopal episode with striking her head and persistent headache. heart tones will be obtained. History & Record Review Discussion w/independent historian: Patient Lab Data Attestation: I reviewed the patient's lab results. Labs: Laboratory Results - last 24 hr 04/05/24 04/05/24 12:10 13:12 WBC 9.6 RBC 4.37 Hgb 12.9 Hct 38.6 MCV 88.3 MCH 29.5 MCHC 33.4 RDW Std Deviation 44.6 H RDW Coeff of Astrid 13.6 Plt Count 162 MPV 12.4 H Immature Gran % (Auto) 0.300 Neut % (Auto) 80.7 H Lymph % (Auto) 12.4 L Willacy % (Auto) 5.4 Eos % (Auto) 0.9 Baso % (Auto) 0.3 Absolute Neuts (auto) 7.7 Absolute Lymphs (auto) 1.19 Nucleated RBC % 0 Sodium 138 Potassium 3.5 Chloride 108 H Carbon Dioxide 26.0 Anion Gap 4 L BUN 8 Creatinine 0.47 L Est GFR (MDRD) Af Amer 208 Est GFR (MDRD) Non-Af 172 BUN/Creatinine Ratio 16.9 Glucose 84 Calcium 10.1 Total Bilirubin 0.30 Direct Bilirubin 0.12 AST 7 L ALT 11 L Alkaline Phosphatase 51 Total Protein 6.5 Albumin 3.2 Globulin 3.3 Urine Color Yellow Urine Clarity Cloudy Urine pH 7.0 Ur Specific [place] 1.015 Urine Protein 30 H Urine Glucose (UA) Normal Urine Ketones Negative Urine Occult Blood 25 H Urine Nitrite Negative Urine Bilirubin Negative Urine Urobilinogen Normal Ur Leukocyte Esterase 100 H Urine RBC 5-10 SEEN Urine WBC 5-10 SEEN Ur Squamous Epith Cells 5-10 SEEN Amorphous Sediment 2+ Urine Bacteria 0 SEEN Urine Mucus 0 SEEN POC Glucose 84 Radiography Diagnostic Testing: Clinical Impression(s) from Imaging Studies Brain CT 04/05/24 12:43 IMPRESSION: Normal unenhanced CT scan of the brain. Electronically Signed: Juanito Hayes MD at 13:40 EDT , EKG Initial EKG: Attestation: I personally reviewed and interpreted this EKG as follows: Interpretation: Sinus Rhythm (Sinus 86 with no acute ischemia.) Treatment and Re-Evaluation :: CBC was normal white count at 9.6 with hemoglobin 12.9. Chemistry studies unremarkable. LFTs normal. Urinalysis reveals no urine ketones. She has 5-10 white cells 5-10 epithelial cells and 2+ amorphous sediment. No bacteria noted. BGT on arrival was 84. She did eat a small meal here but her significant other brought in for her. Her repeat blood sugar is 98. Patient was able to ambulate down the padron to the restroom with no symptoms. I spoke with Dr. Youssef who knows the patient. She does feel patient is safe to be discharged home. Being 12 weeks she does not feel she needs to go for any further monitoring. Patient is to follow-up in the office in the next 1 to 2 weeks. Increase p.o. fluids. Return instructions provided. Discharge Plan Triage Chief Complaint: Syncope ED Provider: Navya Valverde Dx/Rx/DC Orders Clinical Impression: Syncope Instructions: ED Fainting, Uncertain Cause Prescriptions: No Action valacyclovir [Valtrex] 500 mg tablet 500 mg PO DAILY PNV no.[id number] 400 mcg-35 mg- 25 mg-5 mg tablet,chewable PO DAILY ondansetron 4 mg tablet,disintegrating 4 mg PO Q6H PRN (Reason: nausea and vomiting) Qty: 30 0RF Primary Care Provider: Care Physician,No Primary Referrals: Kenia Youssef MD [Med Staff - Active Staff] - 5-7 Days Care Physician,No Primary [Primary Care Provider] - Disposition Disposition: Home, Self Care
[2024-04-05] MEDS: 0.9% Normal Saline (1000mL) 1,000 ML 150 ML IV (13:06)
[2024-04-05 13:25] LABS: Bacteria 0 SEEN /hpf (None Seen); Mucous, Urine 0 SEEN /hpf (<or=2+)
[2024-04-05 13:28] LABS: Absolute Lymphocyte Count 1.19 X10^3/uL (0.83-4.51); Absolute Neutrophil Count 7.7 X10^3/uL (2.0-7.7); Basophil# 0.03 X10^3/uL; Basophil% 0.3 % (0-1); Color, Urine Yellow (Yellow); Eosinophil# 0.09 X10^3/uL; Eosinophils% 0.9 % (0-5); Glucose, Dipstick Normal (Normal); Hematocrit 38.6 % (37-47); Hemoglobin 12.9 g/dL (12.0-15.0); Ketone-Dipstick Negative (Negative); Leukocyte Esterase-Dipstick 100 /ul (Negative); Lymphocyte # 1.19 X10^3/ul (0.83-4.51); Lymphocyte % 12.4 % (19-41); Mean Corp Hgb Conc 33.4 g/dL (32-36); Mean Corpuscular Hgb 29.5 pg (27.0-32.0); Mean Corpuscular Volume 88.3 fL (81-99); Mean Platelet Vol. 12.4 fl (6.2-12.0); Monocyte# 0.52 X10^3/uL; Monocyte% 5.4 % (0-10); NRBC Flagged by Analyzer 0 % (0-5); Neutrophil # 7.72 X10^3/uL (2.7-7.7); Neutrophil % 80.7 % (47-70); Nitrite-Dipstick Negative (Negative); Occult Blood-Urine 25 /ul (Negative); Platelet Count 162 K/mm3 (150-450); Protein-Dipstick 30 mg/dl (Negative); RBC Distribution Width CV 13.6 % (11.6-14.6); RBC Distribution Width SD 44.6 fl (35.1-43.9); Red Blood Count 4.37 M/mm3 (4.2-5.4); Specific Gravity, Urine 1.015 (1.002-1.030); Urine Bilirubin Dipstick Negative (Negative); Urine Urobilinogen Normal (Normal); White Blood Count 9.6 K/mm3 (4.4-11.0)
[2024-04-05 13:38] LABS: Urine Clarity Cloudy (Clear)
[2024-04-05 13:39] LABS: Amorphous Sediment 2+; Red Blood Cells-Urine 5-10 SEEN /hpf (0-5); Squamous Epithelial Cells - UA 5-10 SEEN /hpf (5-10); White Blood Cells 5-10 SEEN /hpf (0-5)
[2024-04-05 13:52] LABS: AST(SGOT) 7 U/L (15-37); Alanine Aminotransfer ALT/SGPT 11 U/L (13-56); Albumin, Serum 3.2 g/dL (3.2-5.0); Alkaline Phosphatase 51 U/L (45-117); Anion Gap 4 (5-15); BUN 8 mg/dL (7-18); BUN/Creat Ratio 16.9 RATIO (10-20); Bilirubin, Direct 0.12 mg/dL (0.00-0.30); Calcium,Total 10.1 mg/dL (8.5-10.1); Chloride 108 mmol/L (98-107); Creatinine, Serum 0.47 mg/dL (0.55-1.02); EST Glomerular Filtration Rate 172 mL/min (>60); Est Glom Filt Rate - Afr Amer 208 mL/min (>60); Globulin 3.3 g/dL (2.2-4.2); Glucose 84 mg/dL (74-106); Potassium 3.5 mmol/L (3.5-5.1); Protein, Total 6.5 g/dL (6.4-8.2); Sodium Level 138 mmol/L (136-145)
[2024-04-05 14:06] VITALS: BP 127/66; PULSE 74; RESP 15; TEMP 36.7; O2SAT 98
[2024-04-05 14:18] LABS: Bedside Glucose 98 mg/dL (74-106)
[2024-04-05 14:28] VITALS: BP 122/78; PULSE 79; RESP 16; TEMP 36.1; O2SAT 99
== END 2024-04-05 14:30 | disposition home or self-care (01) ==
PROVIDERS: Emergency Provider Emergency Medicine; Visit Provider Emergency Medicine
DX: O99.891 Other specified diseases and conditions complicating pregnancy (principal); R55 Syncope and collapse; Z3A.12 12 weeks gestation of pregnancy
CPT/HCPCS: 70450; 80048; 80076; 81001; 82962; 85025; 93005; 96360; 99284; J7030; A4216

== ENCOUNTER → 2024-05-21 | Outpatient (CLI) | payer SELFPAY | END | disposition home or self-care (01) | PROVIDERS: Referring Provider Obstetrics & Gynecology; Visit Provider Obstetrics & Gynecology | DX: R39.15 Urgency of urination (principal) | CPT/HCPCS: 36415; 87086 ==

== ENCOUNTER → 2024-06-20 | Outpatient (CLI) | payer MEDICAID, SELFPAY ==
--- NOTE | 2024-06-20 15:33 | US_ITS ---
HISTORY: Anatomy scan. TECHNIQUE: Transabdominal and transvaginal pelvic ultrasound was performed. 122 images. COMPARISON: None. FINDINGS: INTRAUTERINE GESTATION(s): Single. PRESENTATION: Variable, cephalic presentation at the beginning of the examination and breech position at the end of the examination. HEART MOTION: 143 bpm. PLACENTA: Posterior, grade one. No placenta previa. CERVIX: 4.2 cm long and closed. AMNIOTIC FLUID: Maximum vertical pocket 3.5 cm, within normal limits. biometry- BIPARIETAL DIAMETER: 5.1 cm, corresponding to 21 weeks 3 days. HEAD CIRCUMFERENCE: 19.7 cm, corresponding to 21 weeks 6 days. ABDOMINAL CIRCUMFERENCE: 18 cm, corresponding to 22 weeks 6 days. FEMUR LENGTH: 3.7 cm, corresponding to 21 weeks 6 days. ESTIMATED GESTATIONAL AGE: 22 weeks 0 days. ESTIMATED DUE DATE (RIGOBERTO): 10/24/2024. ESTIMATED WEIGHT: 496 g corresponding to 13th percentile. ANATOMY: Facial profile, orbits, nose/lips, anterior and posterior cranial fossa, spine, bilateral upper and lower extremities, four-chamber heart, three-vessel cord insertion, stomach, kidneys, and bladder visualized. US/OB Anatomy w/ Transvaginal IMPRESSION: Single living intrauterine in variable presentation with an estimated gestational age of 22 weeks 0 days. Unremarkable anatomic survey. Electronically Signed: Adriana Miner MD at 15:30 EDT ,
== END | disposition home or self-care (01) ==
LOC: OPUS 15:22
PROVIDERS: Referring Provider Obstetrics & Gynecology; Visit Provider Obstetrics & Gynecology
DX: O09.90 Supervision of high risk pregnancy, unspecified, unspecified trimester (principal); Z3A.00 Weeks of gestation of pregnancy not specified
CPT/HCPCS: 76805; 76817

== ENCOUNTER → 2024-07-25 | Outpatient (CLI) | payer MEDICAID, SELFPAY ==
[2024-07-25 13:36] LABS: Absolute Neutrophil Count 7.2 X10^3/uL (2.0-7.7); Basophil# 0.03 X10^3/uL; Basophil% 0.3 % (0-1); Eosinophils% 1.1 % (0-5); Hematocrit 32.7 % (37-47); Lymphocyte % 15.8 % (19-41); Mean Corp Hgb Conc 33.6 g/dL (32-36); Mean Corpuscular Hgb 29.9 pg (27.0-32.0); Mean Corpuscular Volume 88.9 fL (81-99); Monocyte# 0.63 X10^3/uL; Monocyte% 6.6 % (0-10); NRBC Flagged by Analyzer 0 % (0-5); Neutrophil # 7.19 X10^3/uL (2.7-7.7); Neutrophil % 75.8 % (47-70); Platelet Count 146 K/mm3 (150-450); RBC Distribution Width CV 12.9 % (11.6-14.6); RBC Distribution Width SD 42.2 fl (35.1-43.9); Red Blood Count 3.68 M/mm3 (4.2-5.4); White Blood Count 9.5 K/mm3 (4.4-11.0)
[2024-07-25 14:11] LABS: Glucose Challenge Gest 1H 50g 116 mg/dL (70-140)
[2024-07-25 14:41] LABS: HIV - WCH Non-Reactive (Nonreactive); Syphilis Antibodies Non-reactive
== END | disposition home or self-care (01) ==
PROVIDERS: Advanced Practice Midwife; Referring Provider Obstetrics & Gynecology; Visit Provider Obstetrics & Gynecology
DX: O09.90 Supervision of high risk pregnancy, unspecified, unspecified trimester (principal); Z3A.23 23 weeks gestation of pregnancy; Z13.1 Encounter for screening for diabetes mellitus
CPT/HCPCS: 36415; 82950; 85025; 86703; 86780

== ENCOUNTER → 2024-09-24 | Outpatient (CLI) | payer MEDICAID, SELFPAY | END | disposition home or self-care (01) | LOC: LABSPEC 14:41 | PROVIDERS: Referring Provider Obstetrics & Gynecology; Visit Provider Obstetrics & Gynecology | DX: O09.93 Supervision of high risk pregnancy, unspecified, third trimester (principal); Z3A.00 Weeks of gestation of pregnancy not specified | CPT/HCPCS: 87081 ==

== ENCOUNTER 2024-10-01 14:31 | Outpatient (CLI) | payer MEDICAID, SELFPAY ==
--- NOTE | 2024-10-01 14:37 | US_ITS ---
EXAM: US SECOND OR THIRD TRIMESTER , TRANSABDOMINAL CLINICAL INDICATION: growth TECHNIQUE: Transabdominal obstetrical ultrasound of the maternal pelvis and a second or third trimester with image documentation. COMPARISON: No relevant prior studies available. FINDINGS: FETUS: Composite menstrual age by measurements is 34 weeks 6 days. HEART RATE: cardiac rate is 143 bpm. PRESENTATION: Single fetus in cephalic presentation. PLACENTA: Posterior placenta with grade 3 maturity change. No placenta previa. No abruption. AMNIOTIC FLUID: Amniotic fluid index is 12 cm. BIOMETRICS GESTATIONAL AGE: Clinical gestational age is 37 weeks 6 days with clinical RIGOBERTO of October 16, 2024. RIGOBERTO: See above. EFW: The interval growth and estimated weight are below the 5th percentile indicative of IUGR. Estimated weight is 2634 g. BPD: Biparietal diameter is 8.7 cm. HC: Head circumference is 31.2 cm. AC: Abdominal circumference is 31.2 cm. FL: Femur length is 6.8 cm. MATERNAL: UTERUS: Normal. No myometrial mass. CERVIX: The cervix is not imaged. ADNEXA: Normal. No adnexal masses. FREE FLUID: None. US/OB Limited With Biometrics IMPRESSION: Third trimester intrauterine gestation with findings suggestive of IUGR. Electronically Signed: Jonas Marvin MD at 17:05 EST ,
[2024-10-01 16:07] VITALS: BMI 27.3
[2024-10-01 16:11] VITALS: BP 131/84; PULSE 105; RESP 16; TEMP 36.8; O2SAT 99
--- NOTE | 2024-10-02 05:30 | OB.TRI.PN_ITS ---
Progress Notes Date of Service: 10/01/24 Progress Note: Patient presents for triage evaluation secondary to iugr FHT: 140 Moderate variability reactive no decelerations category I tracing [place]: no regular Contractions Assessment and plan: iugr Reactive NST, 37 weeks reassuring maternal and status patient discharged to home to follow-up tomorrow for . See problem list details for additional plan information. Charges/Coding Procedures Urinary/Genital [id number]: 13115-00 non-stress test Interp Assessment & Plan (1) IUGR (intrauterine growth restriction): (2) Uterine size-date discrepancy, third trimester: COMMENT: growth US today (3) Marijuana use: COMMENT: counseling provided, encourage to stop while (4) Maternal varicella, non-immune: COMMENT: per pt has not had vaccine or varicella immune to varicella. (5) Herpes genitalis: QUALIFIERS: Herpes simplex infection site: vulvovaginitis Qualified Code(s): A60.04 - Herpesviral vulvovaginitis COMMENT: Taking valtrex prn. Needs daily at 36wk (6) Supervision of high-risk : QUALIFIERS: Trimester: third trimester Qualified Code(s): O09.93 - Supervision of high risk , unspecified, third trimester COMMENT: PRR , RIGOBERTO 10/16/24 girl-[facility]na. PC Francoise, Significant Other Jordan (7) : QUALIFIERS: Weeks of gestation: 37 weeks Qualified Code(s): Z3A.37 - 37 weeks gestation of COMMENT: NIPT low risk. Carrier testing negative AFP neg, normal anatomy US, nl GCT Primary section scheduled for 10/11 @ 7:10 with ARMANDO
== END 2024-10-01 17:42 | disposition home or self-care (01) ==
LOC: OPUS 14:31 → WPOUT 15:44 → WP 15:45
PROVIDERS: Referring Provider Obstetrics & Gynecology; Visit Provider Obstetrics & Gynecology
DX: O36.5930 Maternal care for other known or suspected poor fetal growth, third trimester, not applicable or unspecified (principal); Z3A.37 37 weeks gestation of pregnancy; O26.843 Uterine size-date discrepancy, third trimester; O99.323 Drug use complicating pregnancy, third trimester; F12.99 Cannabis use, unspecified with unspecified cannabis-induced disorder; O98.513 Other viral diseases complicating pregnancy, third trimester; B01.9 Varicella without complication; O98.313 Other infections with a predominantly sexual mode of transmission complicating pregnancy, third trimester; A60.04 Herpesviral vulvovaginitis
CPT/HCPCS: 59025; 59050 ×2; 76816; G0378 ×2; 99221

== ENCOUNTER 2024-10-02 09:58 | Inpatient (IN) | payer MEDICAID, SELFPAY ==
[2024-10-02] VITALS (22 sets, daily range): BP systolic 109–126; BP diastolic 60–90; PULSE 60–107; RESP 12–18; TEMP 36.1–36.8; O2SAT 94–100; BMI 27.2
[2024-10-02] MEDS: Lactated Ringers 1,000 ML 999 ML IV (10:45)
[2024-10-02 10:57] LABS: Absolute Lymphocyte Count 1.13 X10^3/uL (0.83-4.51); Absolute Neutrophil Count 6.7 X10^3/uL (2.0-7.7); Basophil# 0.01 X10^3/uL; Basophil% 0.1 % (0-1); Eosinophil# 0.06 X10^3/uL; Eosinophils% 0.7 % (0-5); Hematocrit 30.6 % (37-47); Hemoglobin 10.5 g/dL (12.0-15.0); Lymphocyte # 1.13 X10^3/ul (0.83-4.51); Lymphocyte % 13.4 % (19-41); Mean Corp Hgb Conc 34.3 g/dL (32-36); Mean Corpuscular Hgb 29.6 pg (27.0-32.0); Mean Corpuscular Volume 86.2 fL (81-99); Mean Platelet Vol. 11.8 fl (6.2-12.0); Monocyte# 0.52 X10^3/uL; Monocyte% 6.2 % (0-10); NRBC Flagged by Analyzer 0 % (0-5); Neutrophil # 6.68 X10^3/uL (2.7-7.7); Platelet Count 161 K/mm3 (150-450); RBC Distribution Width CV 14.1 % (11.6-14.6); RBC Distribution Width SD 44.5 fl (35.1-43.9); Red Blood Count 3.55 M/mm3 (4.2-5.4); White Blood Count 8.5 K/mm3 (4.4-11.0)
[2024-10-02] MEDS: Acetaminophen 500 MG Tablet 1000 MG PO ×3 (11:32→23:45)
[2024-10-02] MEDS: Sodium Citrate/Citric Acid 30 ML UDC PO (11:33)
[2024-10-02 12:02] LABS: Syphilis Antibodies Non-reactive
[2024-10-02] MEDS: Cefazolin 2 GM in Syringe IV (12:34)
[2024-10-02 12:48] LABS: Amphetamine Urine VISTA NEGATIVE (<1000 ng/mL); Barbiturate Urine VISTA NEGATIVE (< 200 ng/mL); Benzodiazepine Urine VISTA NEGATIVE (< 200 ng/mL); Cocaine Urine VISTA NEGATIVE (< 300 ng/mL); Ecstacy Urine VISTA NEGATIVE (< 500 ng/mL); Methadone Urine VISTA NEGATIVE (< 300 ng/mL); PCP Urine VISTA NEGATIVE (< 25 ng/mL); THC Urine VISTA POSITIVE (< 50 ng/mL); Vista UDS pH Range 7
[2024-10-02] MEDS: Oxytocin 15 Units/NS 250ml 15 UNITS/250 ML IV.SOLN 83 UNITS IV (13:35)
[2024-10-02] MEDS: Ketorolac 30 MG/ML Syringe IV ×2 (14:15→20:01)
[2024-10-02] MEDS: Ondansetron 4 MG/2 ML Vial IV (15:18)
[2024-10-02] MEDS: Acyclovir 200 MG Capsule 400 MG PO (21:53)
[2024-10-03] MEDS: 0.9% Saline Lock 10 ML Syringe IV ×2 (02:07→07:40)
[2024-10-03] MEDS: Ketorolac 30 MG/ML Syringe IV ×2 (02:08→07:39)
[2024-10-03 03:40] VITALS: BP 104/61; PULSE 68; RESP 16; TEMP 36.5; O2SAT 99
[2024-10-03] MEDS: Acetaminophen 500 MG Tablet 1000 MG PO ×2 (05:21→12:14)
[2024-10-03 05:41] LABS: Hematocrit 28.6 % (37-47); Hemoglobin 9.6 g/dL (12.0-15.0); Mean Corp Hgb Conc 33.6 g/dL (32-36); Mean Corpuscular Hgb 29.2 pg (27.0-32.0); Mean Corpuscular Volume 86.9 fL (81-99); Mean Platelet Vol. 11.5 fl (6.2-12.0); Platelet Count 135 K/mm3 (150-450); RBC Distribution Width SD 43.8 fl (35.1-43.9); Red Blood Count 3.29 M/mm3 (4.2-5.4); White Blood Count 9.9 K/mm3 (4.4-11.0)
[2024-10-03] MEDS: Acyclovir 200 MG Capsule 400 MG PO ×2 (05:51→13:52)
[2024-10-03 07:56] VITALS: BP 113/75; PULSE 69; RESP 16; TEMP 36.6; O2SAT 100
[2024-10-03] MEDS: Senna/Docusate Sodium 1 Tablet PO (11:17)
[2024-10-03 12:33] VITALS: BP 114/73; PULSE 90; RESP 16; TEMP 36.3; O2SAT 99
[2024-10-03] MEDS: Ibuprofen 600 MG Tablet PO (13:52)
== END 2024-10-03 17:35 | disposition home or self-care (01) | DRG 540 ==
PROVIDERS: Admitting Provider Obstetrics & Gynecology; Referring Provider Obstetrics & Gynecology; Visit Provider Obstetrics & Gynecology
DX: O36.5930 Maternal care for other known or suspected poor fetal growth, third trimester, not applicable or unspecified (principal); A60.09 Herpesviral infection of other urogenital tract; O99.324 Drug use complicating childbirth; F12.90 Cannabis use, unspecified, uncomplicated; B00.9 Herpesviral infection, unspecified; O98.32 Other infections with a predominantly sexual mode of transmission complicating childbirth; O98.52 Other viral diseases complicating childbirth; Z37.0 Single live birth; Z87.891 Personal history of nicotine dependence; Z3A.38 38 weeks gestation of pregnancy
CPT/HCPCS: 59025; 59050; 76816; 80307; 85025; 85027; 86780; 86850; 86900; 86901; 99221; J7120; A4216; G0378; J2405

== ENCOUNTER → 2025-04-19 | Outpatient (CLI) | payer MEDICAID, SELFPAY ==
--- NOTE | 2025-04-19 13:44 | US_ITS ---
PROCEDURE: PELVIC (NON ) 04/19/2025 REASON FOR EXAM: PELVIC PAIN TECHNIQUE: Transabdominal pelvic ultrasound FINDINGS: Transabdominal imaging only. Patient declined transvaginal imaging The uterus measures 7.3 x 5.5 x 4.3 cm and appears within limits. 9 mm homogeneous endometrial stripe. Cervix appears within limits. The right ovary measures 2.9 x 2.8 x 2.4 cm. The left ovary measures 3.6 x 2.6 x 1.8 cm. The ovaries appear within limits containing small follicles with evidence of ovarian vascular flow seen. No evidence of adnexal mass. No free fluid seen. Bladder volume 40 cc US/Pelvic (Non ) IMPRESSION: Transabdominal imaging only. Patient declined transvaginal imaging. Study appe ars within limits as above. Reading Location: [id number]
== END | disposition home or self-care (01) ==
LOC: US 13:41
PROVIDERS: Referring Provider Nurse Practitioner Women's Health; Visit Provider Nurse Practitioner Women's Health
DX: R10.2 Pelvic and perineal pain (principal)
CPT/HCPCS: 76856

== ENCOUNTER 2025-11-11 09:45 | Emergency (ER) | payer MEDICAID, SELFPAY ==
[2025-11-11 09:46] VITALS: BP 124/82; PULSE 86; RESP 18; TEMP 36.1; O2SAT 100; BMI 22.5
--- NOTE | 2025-11-11 10:08 | US_ITS ---
PROCEDURE: TRANSVAGINAL NON-, 11/11/2025 REASON FOR EXAM: DYSFUNCTIONAL UTERINE BLEEDING TECHNIQUE: Grayscale and color doppler transvaginal pelvic ultrasound was performed. COMPARISON: 04/11/2025 FINDINGS: Uterus: 9.0 x 5.5 x 4.1 cm, Anteverted. Unremarkable echotexture. Changes of likely prior along the anterior lower uterine segment with associated shadowing. Endometrium: 5 mm, unremarkable. Cervix: Unremarkable. Right ovary: 4.4 1.3 x 1.3 cm. Unremarkable. Left ovary: 3.7 x 2.8 x 2.8 cm. Unremarkable. Free fluid: None visualized. Other: None. US/Transvaginal Non- IMPRESSION: 1. No acute or suspicious findings. 2. Additional description as above. Reading Location: [id number]
--- NOTE | 2025-11-11 10:09 | EDS_ITS ---
HPI HPI - Female History of Present Illness Chief Complaint: Vag Bleeding Narrative Narrative: Chief complaint and HPI: 25-year-old female who is G2, P2 presents for evaluation of dysfunctional uterine bleeding. Patient states up until 2 months ago she had regular periods. She states for the past 2 months she has been intermittently bleeding. She denies any fever, chills, abdominal pain, nausea, vomiting, dysuria, vaginal discharge. She is sexually active but does not believe herself to be . She is not on control. She follows with [facility]. She called their office today and they told her to come to the emergency department. Patient states this round of vaginal bleeding started 2 days ago. She uses pads and tampons. Review of systems: See HPI Medications: As listed on the chart Allergies: As listed on the chart PFSH: Per chart Vital signs: As listed on the chart. Reviewed. Physical exam: Gen: A&O x3, NAD Head: Normocephalic, atraumatic Eyes: No sclera icterus, conjunctiva clear ENT: Moist mucous membranes CV: RRR, no murmurs Resp: Lungs CTA BL, no w/r/c GI: Abd soft, non-distended, non-tender, no r/r/g Pelvic: Normal external genitalia. No lesions, masses, or rashes appreciated. Cervix is non-friable. Vaginal bleeding from cervical os. No clots. No discharge. No cervical motion tenderness appreciated. No sign of PID on examination. Musc: Full ROM, no deformity Skin: Warm, dry Neuro: Alert, oriented, grossly intact, sensation intact Psych: Cooperative, appropriate mood and affect [facility] Medical History (Updated 04/23/25 @ 10:30 by Kristal Machado RN) Smoker Genital herpes affecting IUGR (intrauterine growth restriction) Hx of chlamydia infection Supervision of high-risk Home Medications ?Medication ?Instructions ?Recorded ?Last Taken ?Type valacyclovir 500 mg tablet 500 mg PO DAILY PRN breakou t #30 07/16/25 11/10/25 Rx (Valtrex) tabs Allergy/AdvReac Type Severity Reaction Status Date / Time No Known Allergies Allergy Verified 11/11/25 09:47 Family History Grandmother Hypertension Grandmother Cancer Surgical History [place] teeth extracted Social History adopted: No household members: family and children housing: house number of children: 1 current occupational status: employed current occupation: [employer] current occupational exposures/hazards: No pets and animals: No history of recent travel: No sexually active: Yes Smoking Status: Current every day smoker tobacco type: cigarettes second hand exposure: No alcohol intake: current details: not while substance use type: marijuana well-balanced diet: about half the time caffeine: No eating out: 1-3 times/week during the past year weight has: remained stable what type of physical activity do you participate in: none thad/mormonism: None seatbelt use: always do you feel safe at home: Yes additional social history: Single Significant Other- Jordan EXAM Physical Exam Const Vital Signs: 11/11/25 09:46 Temperature 97 F L Temperature Source Temporal Pulse Rate 86 Respiratory Rate 18 Blood Pressure 124/82 H Blood Pressure Mean 96 Pulse Ox 100 MDM MDM MDM Narrative Medical decision making narrative: 25-year-old female who is G2, P2 presents for evaluation of dysfunctional uterine bleeding. Differential diagnosis includes but is not limited to dysfunctional uterine bleeding, fibroids, , anemia. Laboratory workup ordered with transvaginal ultrasound. CBC without leukocytosis or anemia. BMP unremarkable. Serum negative. UA positive for UTI. Patient has blood in her urine which is consistent with vaginal bleeding. Will send for cu lture. Transvaginal ultrasound shows no acute or suspicious findings. At this point in time, patient's symptoms are likely secondary to dysfunctional uterine bleeding. Follow-up with her [facility]. Return back to ED symptoms change or worsen. She confirmed understand the plan. She was given a prescription for Keflex for UTI. Follow-up with PCP. Impression: 1. Dysfunctional uterine bleeding 2. UTI Lab Data Labs: Laboratory Results - last 24 hr 11/11/25 11/11/25 09:48 10:37 WBC 4.7 RBC 4.46 Hgb 13.1 Hct 39.5 MCV 88.6 MCH 29.4 MCHC 33.2 RDW Std Deviation 45.9 H RDW Coeff of Astrid 14.2 Plt Count 147 L MPV 12.7 H Immature Gran % (Auto) 0.200 Neut % (Auto) 64.5 Lymph % (Auto) 25.3 [place] % (Auto) 6.4 Eos % (Auto) 3.2 Baso % (Auto) 0.4 Absolute Neuts (auto) 3.0 Absolute Lymphs (auto) 1.18 Nucleated RBC % 0 Sodium 142 Potassium 4.0 Chloride 107 Carbon Dioxide 26.8 Anion Gap 8 BUN 12 Creatinine 0.72 Estim Creat Clear Calc 85.80 Est GFR (MDRD) Non-Af 119 BUN/Creatinine Ratio 17.0 Glucose 103 H Calcium 9.9 Serum , Qual NEGATIVE Urine Color Red Urine Clarity Sl. Cloudy Urine pH 6.5 Ur Specific [place] 1.020 Urine Protein 100 H Urine Glucose (UA) Normal Urine Ketones Negative Urine Occult Blood 250 H Urine Nitrite Positive H Urine Bilirubin Negative Urine Urobilinogen 1 H Ur Leukocyte Esterase 25 H Urine RBC > 100 SEEN Urine WBC 0-5 SEEN Ur Squamous Epith Cells 0-5 SEEN Urine Bacteria 0 SEEN Urine Mucus 0 SEEN Radiography Diagnostic Testing: Clinical Impression(s) from Imaging Studies Transvaginal US 11/11/25 10:08 IMPRESSION: 1. No acute or suspicious findings. 2. Additional description as above. Reading Location: [id number] Discharge Plan Triage Chief Complaint: Vag Bleeding ED Provider: Shun Smith Dx/Rx/DC Orders Prescriptions: No Action valacyclovir [Valtrex] 500 mg tablet 500 mg PO DAILY PRN (Reason: breakout) Qty: 30 7RF Primary Care Provider: Care Physician,No Primary Referrals: Care Physician,No Primary [Primary Care Provider, Medical] Print Language: Macedonian
[2025-11-11 10:18] LABS: Mucous, Urine 0 SEEN /hpf (<or=2+)
[2025-11-11 10:20] LABS: Color, Urine Red (Yellow); Glucose, Dipstick Normal (Normal); Ketone-Dipstick Negative (Negative); Leukocyte Esterase-Dipstick 25 /ul (Negative); Nitrite-Dipstick Positive (Negative); Occult Blood-Urine 250 /ul (Negative); Protein-Dipstick 100 mg/dl (Negative); Specific Gravity, Urine 1.020 (1.002-1.030); Urine Bilirubin Dipstick Negative (Negative)
[2025-11-11 10:32] LABS: Red Blood Cells-Urine > 100 SEEN /hpf (0-5); Squamous Epithelial Cells - UA 0-5 SEEN /hpf (5-10)
[2025-11-11 10:58] LABS: Internal QC Validated? YES +Cl - CLEAR BKGD; Pregnancy, Serum, hCG Quali. NEGATIVE Negative
[2025-11-11 11:04] LABS: Hematocrit 39.5 % (37-47); Hemoglobin 13.1 g/dL (12.0-15.0); Immature Granulocytes Count 0.010 X10^3/uL (0.0-0.0); Mean Corp Hgb Conc 33.2 g/dL (32-36); Mean Corpuscular Volume 88.6 fL (81-99); Mean Platelet Vol. 12.7 fl (6.2-12.0); NRBC Flagged by Analyzer 0 % (0-5); Platelet Count 147 K/mm3 (150-450); RBC Distribution Width CV 14.2 % (11.6-14.6); RBC Distribution Width SD 45.9 fl (35.1-43.9); Red Blood Count 4.46 M/mm3 (4.2-5.4); White Blood Count 4.7 K/mm3 (4.4-11.0)
[2025-11-11 12:07] LABS: Anion Gap 8 (5-15); BUN 12 mg/dL (4-19); BUN/Creat Ratio 17.0 RATIO (10-20); Calcium,Total 9.9 mg/dL (7.6-11.0); Carbon Dioxide 26.8 mmol/L (21.0-32.0); Chloride 107 mmol/L (98-108); Estimated Creatinine Clearance 85.80 ml/min (50-250); Glucose 103 mg/dL (70-99); Potassium 4.0 mmol/L (3.3-5.1)
[2025-11-11 12:39] VITALS: BP 134/65; PULSE 64; RESP 16; TEMP 37; O2SAT 100
== END 2025-11-11 12:40 | disposition home or self-care (01) ==
PROVIDERS: Emergency Provider Surgery; Visit Provider Surgery
DX: N93.8 Other specified abnormal uterine and vaginal bleeding (principal); N39.0 Urinary tract infection, site not specified; F17.210 Nicotine dependence, cigarettes, uncomplicated
CPT/HCPCS: 76830; 80048; 81001; 84703; 85025; 87086; 99283; A4216